=== PATIENT | female | born 1950 | race Caucasian/White ===

== ENCOUNTER → 2022-05-24 | Day surgery (SDC) | payer MEDICARE, OTHER ==
[~2022-05-24] MED LIST: AMANTADINE HCL100 M1 PO; ATORVASTATIN CA40 M1 PO; CELECOXIB100 M1 PO; DICLOFENAC SOD100 G1 T; DULOXETINE HCL30 MG PO; FUROSEMIDE40 MG PO; GLIPIZIDE2.5 MG PO; LINZESS145 MC1 PO; LISINOPRIL20 MG PO; LISINOPRIL5 MG PO; OXYBUTYNIN CHLOR5 M1 PO; POTASSIUM CHLO10 ME5 PO; PREDNISONE5 MG PO; PREGABALIN150 MG PO; RIVASTIGMINE1 EACH T
== END | disposition home or self-care (01) ==
LOC: SDC 09:54
PROVIDERS: ATTEND Internal Medicine
DX: Z45.2 Encounter for adjustment and management of vascular access device (principal); I10 Essential (primary) hypertension; F32.A Depression, unspecified; E11.9 Type 2 diabetes mellitus without complications; Z86.73 Personal history of transient ischemic attack (TIA), and cerebral infarction without residual deficits; Z87.891 Personal history of nicotine dependence

== ENCOUNTER 2022-07-24 14:27 | Emergency (ER) | payer MEDICARE, OTHER, MEDICAID ==
[~2022-07-24] VITALS: Wt 93.1 kg
[~2022-07-24 14:27] MED LIST changes: +ADVIL200 MG PO; +ALEVE220 MG PO; +ASPIRIN CHEWABL81 MG PO; +CHOLECALCIFEROL1 GM PO; +COLACE100 MG PO; +LANTUS SOL100 UNIT/1 SC; +LANTUS SOL100 UNIT/1 SQ; +MECLIZINE HYD12.5 MG PO; +MIRALAX17 GM PO; +NOVOLIN R100 UNIT/1 SQ; +OXYBUTYNIN5 MG PO; +SENOKOT8.6 MG PO; +THIAMINE HCL100 MG PO; +Vibra-Tab100 MG PO
[2022-07-24 15:13] LABS: ALKALINE PHOSPHATASE 140 U/L (46-116); BUN 15 mg/dl (9-23); CHLORIDE 106 mmol/L (98-107); LIPASE 25 U/L (12-53); POTASSIUM 2.9 mmol/L (3.4-5.1); SGPT/ALT 27 U/L (10-49); TOTAL PROTEIN 6.5 gm/dL (6.0-8.0)
[2022-07-24 15:54] LABS: BILIRUBIN Negative (Negative); BLOOD Negative (Negative); CLARITY Clear (Clear); COLOR Yellow (Yellow); GLUCOSE Negative (Negative); KETONE 1+ (Negative); LEUKO ESTERASE 3+ (Negative); NITRITE Negative (Negative)
[2022-07-24 16:06] LABS: BACTERIA 3+; WBC TNTC wbc/hpf (0-5)
[2022-07-24 16:45] LABS: HEMATOCRIT 36.8 % (37.0-47.0); MEAN CELL VOLUME 94.4 fl (81.0-99.0); MEAN CORPUSCULAR HGB 32.3 pg (27.0-31.0); MEAN CORPUSCULAR HGB CONC 34.2 g/dl (33.0-37.0); RED CELL DISTRI WIDTH 14.1 % (0-14.5); WHITE BLOOD COUNT 11.8 10*3/uL (4.8-10.8)
[2022-07-24 17:11] LABS: MANUAL DIFF REFLEX YES; PLATELET COUNT AUTOMATED 166 10*3/uL (130-400)
[2022-07-24 17:13] LABS: PLATELET SUFFICIENCY NORMAL (NORMAL); TOTAL CELLS COUNTED 100 #CELLS
[2022-07-24] MEDS ORDERED: MIRALAX17 GM PO (17:16)
[2022-07-24] MEDS ORDERED: CEPHALEXIN500 M1 PO (17:21)
== END 2022-07-24 18:39 | disposition home or self-care (01) ==
LOC: ED 14:27
PROVIDERS: Emergency Medicine
DX: K59.00 Constipation, unspecified (principal); I10 Essential (primary) hypertension; F32.A Depression, unspecified; Z86.73 Personal history of transient ischemic attack (TIA), and cerebral infarction without residual deficits; E11.9 Type 2 diabetes mellitus without complications; Z88.5 Allergy status to narcotic agent; Z98.890 Other specified postprocedural states; Z90.710 Acquired absence of both cervix and uterus

== ENCOUNTER → 2023-07-21 | Outpatient (CLI) | payer MEDICARE, OTHER, MEDICAID ==
[~2023-07-21] MED LIST changes: +ACETAMINOPHEN500 M4 PO; +ADULT TUSS100 MG/51 PO; +AMOXICILLIN500 M3 PO; +ATIVAN0.5 MG PO; +BENZONATATE100 M1 PO; +BUSPIRONE10 MG PO; +CEPHALEXIN500 M1 PO; +CIPRO500 MG PO; +COUGH DROPS1 EAC1 MM; +CRANBERRY400 M2 PO; +DULCOLAX10 M1 R; +HYDROCODONE-AC1 EAC1 PO; +KAPSPARGO SPRIN50 MG PO; +KEPPRA750 MG PO; +LACTULOSE20 GM/30 M PO; +LINZESS290 MC1 PO; +LOSARTAN POTASS25 M1 PO; +MAGNESIUM OXID400 MG PO; +MILK OF MA400 MG/53 PO; +MINERAL OIL 1 ML1 ML; +MUSCLE RUB CREA35 GM T; +NITROGLYCERIN0.4 MG SL; +NITROSTAT0.4 MG SL; +ONDANSETRON HYDR4 MG PO; +OXYBUTYNIN CHL2.5 MG PO; +PEPCID20 MG PO; +PREDNISONE2.5 MG PO; +RILUTEK50 M1 PO; +ROPINIROLE HY0.25 MG PO; +TOPROL XL25 MG PO; +TOUJEO SOL300 UNIT/1 SQ; +TYLENOL EXTRA500 MG PO; +VISTARIL25 M2 PO
== END | disposition home or self-care (01) ==
LOC: CT 10:56
PROVIDERS: ATTEND Student in an Organized Health Care Education/Training Program
DX: J98.11 Atelectasis (principal); J90 Pleural effusion, not elsewhere classified; I25.10 Atherosclerotic heart disease of native coronary artery without angina pectoris

== ENCOUNTER → 2023-08-08 | Outpatient (CLI) | payer MEDICARE, OTHER, MEDICAID | END | disposition home or self-care (01) | LOC: CT 01:39 | PROVIDERS: ATTEND Urology | DX: N39.0 Urinary tract infection, site not specified (principal); R33.9 Retention of urine, unspecified; K76.0 Fatty (change of) liver, not elsewhere classified; J90 Pleural effusion, not elsewhere classified; J98.11 Atelectasis; N26.1 Atrophy of kidney (terminal); I70.0 Atherosclerosis of aorta; Z90.710 Acquired absence of both cervix and uterus; E27.8 Other specified disorders of adrenal gland ==

== ENCOUNTER 2023-11-19 10:29 | Inpatient (IN) | payer MEDICARE, OTHER, MEDICAID ==
[~2023-11-19] VITALS: Ht 157.4 cm; Wt 100.2 kg
[2023-11-19 10:37] VITALS: BP 115/39
[2023-11-19 13:49] LABS: BASO % 0.3 % (0.0-1.0); EOS # 0.6 10*3/uL (0.0-0.4); EOS % 5.4 % (1.0-4.0); HEMATOCRIT 30.1 % (37.0-47.0); LYMPH # 1.8 10*3/uL (1.3-4.4); LYMPH % 16.6 % (27.0-41.0); MEAN CORPUSCULAR HGB 30.5 pg (27.0-31.0); MEAN CORPUSCULAR HGB CONC 30.2 g/dl (33.0-37.0); MEAN PLATELET VOLUME 11.9 fl (9.6-12.3); MONO # 0.6 10*3/uL (0.1-1.0); MONO % 5.8 % (3.0-9.0); NEUT # 7.8 10*3/uL (2.3-7.9); NEUT % 70.5 % (47.0-73.0); PLATELET COUNT AUTOMATED 270 10*3/uL (130-400); RED BLOOD COUNT 2.98 10*6/uL (4.10-5.10); RED CELL DISTRI WIDTH 17.1 % (0-14.5); WHITE BLOOD COUNT 11.1 10*3/uL (4.8-10.8)
[2023-11-19 13:59] LABS: ACT PARTIAL THROMBO TIME 24.2 SECONDS (20.0-32.1)
[2023-11-19 14:20] LABS: ALKALINE PHOSPHATASE 120 U/L (46-116); BUN 14 mg/dl (9-23); CHLORIDE 106 mmol/L (98-107); LIPASE 22 U/L (12-53); POTASSIUM 3.9 mmol/L (3.4-5.1); SGPT/ALT < 7 U/L (5-49); TOTAL PROTEIN 5.5 gm/dL (6.0-8.0)
[2023-11-19] MEDS ORDERED: FUROSEMIDE 40 MG/4 ML VIAL IV ONE (14:35)
[2023-11-19 15:10] VITALS: BP 134/60
[2023-11-19] MEDS ORDERED: ACETAMINOPHEN 325 MG TAB PO PRN (15:40)
[2023-11-19] MEDS ORDERED: BISACODYL 10 MG SUPP R PRN (15:40)
[2023-11-19] MEDS ORDERED: Ondansetron Hydrochloride 4 MG/2 ML VIAL IV PRN (15:40)
[2023-11-19] MEDS ORDERED: BISACODYL 5 MG TAB PO PRN (15:40)
[2023-11-19 17:26] VITALS: BP 143/50
[2023-11-19] MEDS ORDERED: DEXTROSE 10 % IN WATER 250 ML IV PRN (18:55)
[2023-11-19 19:46] VITALS: BP 108/53
[2023-11-19] MEDS ORDERED: INSULIN LISPRO 1 UNIT/0.01 ML SQ SCH (22:00)
[2023-11-19] MEDS ORDERED: CYMBALTA30 MG PO (22:04)
[2023-11-19] MEDS ORDERED: [UNRECOGNIZED DRUG - OTHER] OU (22:05)
[2023-11-19] MEDS ORDERED: FLORASTOR250 MG PO (22:07)
[2023-11-19] MEDS ORDERED: LEVOFLOXACIN250 M2 PO (22:13)
[2023-11-19] MEDS ORDERED: TRAMADOL HCL50 MG PO ×2 (23:41→23:42)
[2023-11-19] MEDS ORDERED: POTASSIUM CHLO10 ME4 PO (23:44)
[2023-11-20] MEDS ORDERED: LORazepam 0.5 MG TAB PO PRN (01:15)
[2023-11-20] MEDS ORDERED: hydrOXYzine pamoate 25 MG CAP PO PRN (01:15)
[2023-11-20 01:43] VITALS: BP 115/51
[2023-11-20 06:41] LABS: BASO % 0.4 % (0.0-1.0); EOS # 0.8 10*3/uL (0.0-0.4); EOS % 7.1 % (1.0-4.0); HEMATOCRIT 29.3 % (37.0-47.0); LYMPH # 2.2 10*3/uL (1.3-4.4); LYMPH % 20.3 % (27.0-41.0); MEAN CELL VOLUME 100.7 fl (81.0-99.0); MEAN CORPUSCULAR HGB 30.2 pg (27.0-31.0); MEAN PLATELET VOLUME 11.9 fl (9.6-12.3); MONO # 0.7 10*3/uL (0.1-1.0); MONO % 6.7 % (3.0-9.0); NEUT # 6.8 10*3/uL (2.3-7.9); PLATELET COUNT AUTOMATED 269 10*3/uL (130-400); RED BLOOD COUNT 2.91 10*6/uL (4.10-5.10); RED CELL DISTRI WIDTH 17.1 % (0-14.5); WHITE BLOOD COUNT 10.6 10*3/uL (4.8-10.8)
[2023-11-20 07:05] LABS: BUN 10 mg/dl (9-23); CHLORIDE 104 mmol/L (98-107); POTASSIUM 3.3 mmol/L (3.4-5.1)
[2023-11-20 08:00] VITALS: BP 107/42
[2023-11-20] MEDS ORDERED: busPIRone Hydrochloride 10 MG TAB PO SCH (10:00)
[2023-11-20] MEDS ORDERED: Duloxetine Hydrochloride 30 MG CAP PO SCH ×2 (10:00→22:00)
[2023-11-20] MEDS ORDERED: Magnesium Hydroxide 30 ML UDC PO SCH (10:00)
[2023-11-20] MEDS ORDERED: Thiamine 100 MG TAB PO SCH (10:00)
[2023-11-20] MEDS ORDERED: LEVETIRACETAM 500 MG TAB PO SCH (10:00)
[2023-11-20] MEDS ORDERED: Insulin Glargine, Recombinan 1 UNIT/0.01 ML SC SCH (10:00)
[2023-11-20] MEDS ORDERED: METOPROLOL SUCCINATE XR 25 MG TAB PO SCH (10:00)
[2023-11-20] MEDS ORDERED: Oxybutynin Chloride 5 MG TAB PO SCH (10:00)
[2023-11-20] MEDS ORDERED: FUROSEMIDE 40 MG/4 ML VIAL IV SCH (10:00)
[2023-11-20] MEDS ORDERED: Enoxaparin Sodium 40 MG/0.4 ML SYR SC SCH (10:00)
[2023-11-20] MEDS ORDERED: POTASSIUM CHLORIDE 20 MEQ TAB PO ONE (11:20)
[2023-11-20] MEDS ORDERED: POTASSIUM CHLO20 ME4 PO (11:23)
[2023-11-20] MEDS ORDERED: FUROSEMIDE40 MG PO (11:23)
[2023-11-20] MEDS ORDERED: MAGNESIUM OXIDE 400 MG TAB PO SCH (22:00)
[2023-11-20] MEDS ORDERED: ATORVASTATIN CALCIUM 40 MG TABLET PO SCH (22:00)
[2023-11-20] MEDS ORDERED: ASPIRIN, CHEWABLE 81 MG TAB PO SCH (22:00)
[2023-11-20] MEDS ORDERED: LACTULOSE 20 GM/30 ML UDC PO SCH (22:00)
== END 2023-11-20 14:25 | DRG 291 ==
LOC: ED 10:29 → EDHOLD 14:48
PROVIDERS: Internal Medicine; Student in an Organized Health Care Education/Training Program; ADMIT Internal Medicine; ATTEND Internal Medicine
DX: I11.0 Hypertensive heart disease with heart failure (principal); E43 Unspecified severe protein-calorie malnutrition; G82.50 Quadriplegia, unspecified; I50.33 Acute on chronic diastolic (congestive) heart failure; G12.21 Amyotrophic lateral sclerosis; Z68.45 Body mass index [BMI] 70 or greater, adult; Z66 Do not resuscitate; K59.00 Constipation, unspecified; E11.51 Type 2 diabetes mellitus with diabetic peripheral angiopathy without gangrene; E11.40 Type 2 diabetes mellitus with diabetic neuropathy, unspecified; D72.829 Elevated white blood cell count, unspecified; D53.9 Nutritional anemia, unspecified; E78.5 Hyperlipidemia, unspecified; F32.A Depression, unspecified; G43.919 Migraine, unspecified, intractable, without status migrainosus; R56.9 Unspecified convulsions; Z91.09 Other allergy status, other than to drugs and biological substances; Z86.73 Personal history of transient ischemic attack (TIA), and cerebral infarction without residual deficits; Z79.899 Other long term (current) drug therapy; Z79.01 Long term (current) use of anticoagulants; Z79.4 Long term (current) use of insulin; Z79.2 Long term (current) use of antibiotics; Z90.710 Acquired absence of both cervix and uterus; Z82.49 Family history of ischemic heart disease and other diseases of the circulatory system

== ENCOUNTER 2023-11-23 22:15 | Emergency (ER) | payer MEDICARE, OTHER, MEDICAID ==
[~2023-11-23] VITALS: Wt 94.8 kg
[~2023-11-23 22:15] MED LIST changes: +CYMBALTA30 MG PO; +FLORASTOR250 MG PO; +LEVOFLOXACIN250 M2 PO; +POTASSIUM CHLO10 ME4 PO; +POTASSIUM CHLO20 ME4 PO; +TRAMADOL HCL50 MG PO; +[UNRECOGNIZED DRUG - OTHER] OU
[2023-11-23 23:09] LABS: BASO # 0.1 10*3/uL (0.0-0.1); BASO % 0.5 % (0.0-1.0); EOS # 0.4 10*3/uL (0.0-0.4); EOS % 3.3 % (1.0-4.0); HEMATOCRIT 30.3 % (37.0-47.0); LYMPH # 1.8 10*3/uL (1.3-4.4); LYMPH % 14.3 % (27.0-41.0); MEAN CELL VOLUME 99.3 fl (81.0-99.0); MEAN CORPUSCULAR HGB 30.2 pg (27.0-31.0); MEAN CORPUSCULAR HGB CONC 30.4 g/dl (33.0-37.0); MEAN PLATELET VOLUME 11.5 fl (9.6-12.3); MONO # 0.9 10*3/uL (0.1-1.0); MONO % 7.1 % (3.0-9.0); NEUT % 73.3 % (47.0-73.0); PLATELET COUNT AUTOMATED 317 10*3/uL (130-400); RED BLOOD COUNT 3.05 10*6/uL (4.10-5.10); RED CELL DISTRI WIDTH 16.6 % (0-14.5); WHITE BLOOD COUNT 12.3 10*3/uL (4.8-10.8)
[2023-11-24 00:40] LABS: BILIRUBIN Negative (Negative); BLOOD Negative (Negative); CLARITY Clear (Clear); COLOR Yellow (Yellow); GLUCOSE Negative (Negative); KETONE Negative (Negative); LEUKO ESTERASE 1+ (Negative); NITRITE Negative (Negative); PH 7.5 (4.5-8.0); SPECIFIC GRAVITY 1.015 (1.001-1.030)
[2023-11-24 01:05] LABS: BACTERIA TRACE; WBC 21-30 wbc/hpf (0-5)
[2023-11-24] MEDS ORDERED: LEVOFLOXACIN750 M2 PO (02:41)
[2023-11-24] MEDS ORDERED: LEVOFLOXACIN 750 MG TAB PO ONE (02:45)
== END 2023-11-24 03:45 ==
LOC: ED 22:15
PROVIDERS: Emergency Medicine
DX: N39.0 Urinary tract infection, site not specified (principal); T17.908A Unspecified foreign body in respiratory tract, part unspecified causing other injury, initial encounter; I50.9 Heart failure, unspecified; F32.A Depression, unspecified; E11.65 Type 2 diabetes mellitus with hyperglycemia; D64.9 Anemia, unspecified; G43.909 Migraine, unspecified, not intractable, without status migrainosus; E11.40 Type 2 diabetes mellitus with diabetic neuropathy, unspecified; E78.5 Hyperlipidemia, unspecified; F41.9 Anxiety disorder, unspecified; Z86.73 Personal history of transient ischemic attack (TIA), and cerebral infarction without residual deficits; Z88.5 Allergy status to narcotic agent; Z90.710 Acquired absence of both cervix and uterus; Z98.890 Other specified postprocedural states; W44.9XXA Unspecified foreign body entering into or through a natural orifice, initial encounter; Y93.89 Activity, other specified; Y92.89 Other specified places as the place of occurrence of the external cause; Y99.8 Other external cause status

== ENCOUNTER 2024-03-20 23:05 | Emergency (ER) | payer MEDICARE, OTHER, MEDICAID ==
[~2024-03-20] VITALS: Ht 170.1 cm; Wt 81.6 kg
[~2024-03-20 23:05] MED LIST changes: +LEVOFLOXACIN750 M2 PO
== END 2024-03-21 01:03 ==
LOC: ED 23:05
DX: T83.018A Breakdown (mechanical) of other urinary catheter, initial encounter (principal); I10 Essential (primary) hypertension; F32.A Depression, unspecified; Z86.73 Personal history of transient ischemic attack (TIA), and cerebral infarction without residual deficits; E11.9 Type 2 diabetes mellitus without complications; F41.9 Anxiety disorder, unspecified; E78.5 Hyperlipidemia, unspecified; Z88.5 Allergy status to narcotic agent; Z90.710 Acquired absence of both cervix and uterus; Z98.890 Other specified postprocedural states; Y73.8 Miscellaneous gastroenterology and urology devices associated with adverse incidents, not elsewhere classified; Y92.129 Unspecified place in nursing home as the place of occurrence of the external cause